=== PATIENT | male | born 1950 | race Caucasian/White ===

== ENCOUNTER 2017-09-13 13:49 | Inpatient (IN) | payer OTHER ==
[~2017-09-13] VITALS: Ht 175.3 cm; Wt 85.9 kg
[2017-09-13 15:19] LABS: HEMATOCRIT 37.2 % (38.0-50.0); MCH 31.6 PG (29.0-34.0); MCHC 33.9 G/DL (30.0-36.0); MCV 93.2 FL (86-99); MEAN PLAT.VOLUME 10.2 uM^3 (9.0-12.4); RBC DIS.WIDTH-CV 11.9 % (11.8-14.6); RBC DIS.WIDTH-SD 41.2 % (39-53); RED BLOOD COUNT 3.99 M/uL (4.00-5.50); WHITE BLOOD COUNT 7.9 K/uL (4.1-10.2)
[2017-09-13 15:20] LABS: PLATELET COUNT 287 K/uL (156-360)
[2017-09-13] MEDS ORDERED: CLEOCIN300 MG PO ×2 (15:27→15:28)
[2017-09-13 15:28] LABS: CHLORIDE 106 mEq/L (99-109); SODIUM 142 mEq/L (136-147)
[2017-09-13 15:29] LABS: GLUCOSE 88 mg/dL (70-99)
[2017-09-13] MEDS ORDERED: LO-DOSE ASPIRIN81 M1 PO (15:30)
[2017-09-13 15:31] LABS: ANION GAP 10 MEQ/L (2-14)
[2017-09-13] MEDS ORDERED: IBUPROFEN200 M1 PO (15:31)
[2017-09-13 15:33] LABS: GFR ESTIMATE (CALCULATED) > 59 mL/min/
[2017-09-13 15:34] LABS: UREA NITROGEN (BUN) 24 mg/dL (9-23)
[2017-09-13 18:17] VITALS: BP 180/92
[2017-09-13 23:45] VITALS: BP 140/74
[2017-09-14 06:39] LABS: HEMATOCRIT 33.9 % (38.0-50.0); MCH 31.3 PG (29.0-34.0); MCHC 33.6 G/DL (30.0-36.0); MCV 93.1 FL (86-99); MEAN PLAT.VOLUME 10.4 uM^3 (9.0-12.4); PLATELET COUNT 245 K/uL (156-360); RBC DIS.WIDTH-SD 41.5 % (39-53); RED BLOOD COUNT 3.64 M/uL (4.00-5.50); WHITE BLOOD COUNT 8.7 K/uL (4.1-10.2)
[2017-09-14 07:05] LABS: ANION GAP 7 MEQ/L (2-14); CHLORIDE 107 MEQ/L (99-109); GFR ESTIMATE (CALCULATED) > 59 mL/min/; GLUCOSE 109 mg/dL (70-99); POTASSIUM 4.3 MEQ/L (3.7-5.4); SAMPLE HEMOLYSIS CHECK 0; SAMPLE ICTERIC CHECK 0; SAMPLE LIPEMIA CHECK 0; SODIUM 140 MEQ/L (136-147); UREA NITROGEN (BUN) 20 mg/dL (9-23)
[2017-09-14 07:56] VITALS: BP 141/69
[2017-09-14 16:07] VITALS: BP 166/85
[2017-09-14 23:45] VITALS: BP 137/74
[2017-09-15 03:39] LABS: VANCOMYCIN, TROUGH 11.1 MCG/ML (10-20)
[2017-09-15 06:05] LABS: ANION GAP 4 MEQ/L (2-14); CHLORIDE 109 MEQ/L (99-109); GFR ESTIMATE (CALCULATED) > 59 mL/min/; GLUCOSE 111 mg/dL (70-99); POTASSIUM 4.1 MEQ/L (3.7-5.4); SODIUM 136 MEQ/L (136-147); UREA NITROGEN (BUN) 16 mg/dL (9-23)
[2017-09-15 07:49] VITALS: BP 194/94
[2017-09-15 17:40] VITALS: BP 160/96
[2017-09-15 23:48] VITALS: BP 180/88
[2017-09-16 05:57] LABS: BASOPHIL COUNT 0.1 K/uL (0-0.1); EOSINOPHIL (%) 3.2 % (0-5); EOSINOPHIL COUNT 0.3 K/uL (0-0.3); HEMATOCRIT 34.6 % (38.0-50.0); IMMATURE GRANULOCYTE (%) 0.4 % (0.0-0.7); INSTRUMENT ABS NEUTROPHIL CT 5.3 K/uL; LYMPHOCYTE COUNT 1.8 K/uL (1.0-2.8); MCH 30.6 PG (29.0-34.0); MCHC 33.5 G/DL (30.0-36.0); MCV 91.3 FL (86-99); MEAN PLAT.VOLUME 10.2 uM^3 (9.0-12.4); MONOCYTE (%) 9.9 % (3-12); MONOCYTE COUNT 0.8 K/uL (0-0.8); NEUTROPHIL COUNT 5.3 K/uL (1.8-6.4); PLATELET COUNT 304 K/uL (156-360); RBC DIS.WIDTH-CV 11.8 % (11.8-14.6); RBC DIS.WIDTH-SD 39.5 % (39-53); RED BLOOD COUNT 3.79 M/uL (4.00-5.50); WHITE BLOOD COUNT 8.3 K/uL (4.1-10.2)
[2017-09-16 06:22] LABS: ANION GAP 8 MEQ/L (2-14); CHLORIDE 107 MEQ/L (99-109); GFR ESTIMATE (CALCULATED) > 59 mL/min/; GLUCOSE 105 mg/dL (70-99); POTASSIUM 4.2 MEQ/L (3.7-5.4); SAMPLE HEMOLYSIS CHECK 0; SAMPLE ICTERIC CHECK 0; SAMPLE LIPEMIA CHECK 0; SODIUM 141 MEQ/L (136-147); UREA NITROGEN (BUN) 13 mg/dL (9-23)
[2017-09-16 07:38] VITALS: BP 123/69
[2017-09-16 12:00] VITALS: BP 170/83
[2017-09-16] MEDS ORDERED: ZYVOX600 MG PO (14:43)
[2017-09-16 16:04] VITALS: BP 185/94
[2017-09-16] MEDS ORDERED: TRAMADOL HCL50 MG PO (17:53)
== END 2017-09-16 18:12 | disposition home or self-care (01) | DRG 572 ==
LOC: EME 13:49 → EDOF 15:43 → 5SOUTH 15:43 → ENRESERV 15:52 → 5SOUTH 17:47
PROVIDERS: Emergency Medicine; Internal Medicine; Student in an Organized Health Care Education/Training Program
PROC: 0JBR0ZZ Excision of Left Foot Subcutaneous Tissue and Fascia, Open Approach (ICD-10-PCS; principal; 2017-09-16)
DX: L03.116 Cellulitis of left lower limb (principal); D50.9 Iron deficiency anemia, unspecified; I10 Essential (primary) hypertension; L02.419 Cutaneous abscess of limb, unspecified; L40.9 Psoriasis, unspecified; E78.5 Hyperlipidemia, unspecified; F10.21 Alcohol dependence, in remission; I25.10 Atherosclerotic heart disease of native coronary artery without angina pectoris; J30.9 Allergic rhinitis, unspecified; Z79.82 Long term (current) use of aspirin; Z87.891 Personal history of nicotine dependence; Z80.2 Family history of malignant neoplasm of other respiratory and intrathoracic organs; Z80.42 Family history of malignant neoplasm of prostate; Z82.49 Family history of ischemic heart disease and other diseases of the circulatory system
CPT/HCPCS: 73701; 80048; 80202; 83605; 85025; 85027; 85651; 87040; 87070; 87075; 87077; 87186; 87205; 99281; 99285; J1650; J2543; J3370; J7050